=== PATIENT | female | born 1950 | race Caucasian/White ===

== ENCOUNTER → 2016-07-16 | Day surgery (SDC) | payer OTHER ==
[~2016-07-16] VITALS: Ht 170.2 cm; Wt 74.1 kg
[2016-07-16] VITALS (10 sets, daily range): BP systolic 110–139; BP diastolic 60–76; PULSE 74–85; RESP 10–24; O2SAT 92–96
[~2016-07-16] MED LIST: ALPR0.5T PO; ASCO-294 PO; Bupivacaine-MPF 0.5% W/EPI 30 mL Inj INFILTRATE ONE; CALC-761 PO; CLOB50FO8 TP; Clindamycin Inj 900 MG in IV Premix 1 EACH IV SCH; Dexamethasone 4 mg/mL Inj IVPUSH PRN; EPHEDrine Sulfate 50 mg/mL Inj IM ONE; EPHEDrine Sulfate 50 mg/mL Inj IVPUSH PRN; FLUN25SP NS; GLUC100016 PO; HYDR200T PO; HYDROcodone-APAP 5-325 mg Tablet PO PRN; Ketamine 10 mg/mL 20 mL Inj ONE; Ketorolac 15 mg/mL Inj IVPUSH PRN; Ketorolac 15 mg/mL Inj ONE; Lactated Ringer's 1,000 ML IV ONE; Lactated Ringer's 1,000 ML IV SCH; Lactated Ringer's 500 ML IV PRN; MULT-1018 PO; MetoCLOpramide 5 mg/mL 2 mL Inj IVPUSH PRN; Ondansetron 2 mg/mL 2 mL Inj IVPUSH PRN; Phenylephrine 10,000 mCg/mL Inj IVPUSH PRN; ZLP5T PO; fentaNYL-PF 50 mCg/mL 2 mL Inj ONE; hydrOXYzine Inj 25 MG/1 mL SDV IM ONE
[2016-07-16] MEDS: Lactated Ringer's 1,000 ML IV SCH ×2 (08:08→10:33)
--- NOTE | 2016-07-16 08:30 | PCM.HPANE ---
Patient Data Surgeon Admitting Provider: Attending Provider:Luke Benedict MD Primary Care Physician:Yovani Kerr MD Other Provider:Alexandra Alatorre Anesthesia Reason for Visit Left Breast Cancer Ht/WT & BMI Height (Feet): 5 Height (Inches): 7.00 Weight (Kilograms): 74.1 Body Mass Index 25.00 Allergies Coded Allergies: azithromycin (Verified Allergy, Intermediate, GI UPSET NAUSEA, 06/29/16) cephalexin (Verified Allergy, Intermediate, GI UPSET NAUSEA, 06/29/16) codeine (Verified Allergy, Intermediate, UPSET STOMACH NAUSEA, 06/29/16) trazodone (Verified Allergy, Intermediate, HANOVER EFFECT DIDN'T LIKE, ) Past Anesthesia History Anesthesia History: Denies:: Abnormal Airway, Anesthesia Reactions, Difficult Intubation, Fam Anesthesia Reaction Diabetes History Hx Diabetes?: No MRSA MRSA: No Medications Hypertension Medication: No Home Meds Incl Beta Charbel: No Reported Medications Glucosamine Sulfate 2Kcl (Glucosamine)1,000 Mg Tablet1,000 Mg PO DAILY 06/29/16 Alprazolam (Xanax)0.5 Mg Tablet0.5-1 Mg PO DAILY PRN For Anxiety Ref 0 06/29/16 Ascorbate Calcium (Vitamin C)500 Mg Tablet1,000 Mg PO DAILY 06/29/16 Hydroxychloroquine Sulfate (Plaquenil)200 Mg [id number] Mg PO DAILY 06/29/16 Multivitamin (Multi Vitamin Daily)1 Each Tablet1 Each PO DAILY Ref 0 06/29/16 Flunisolide 25 Ml Spray2 Sprays NS PRN 06/29/16 Clobetasol Propionate/Emoll (Clobetasol Emollnt 0.05% Foam)50 Gm Foam1 Dose TP BID 06/29/16 Calcium Citrate/Vitamin D3 (Citracal + D Maximum Caplet)1 Each Tablet2 Each PO BID 06/29/16 Zolpidem (Ambien)5 Mg Tablet5 Mg PO HS PRN For Insomnia Ref 0 06/29/16 History HEENT History: Denies:: Abnormal Airway Cataracts Difficult Intubation Dysphagia Glaucoma Hearing Problem Sinus Problem TMJ Cardiovascular History: Denies:: AICD Abdominal Aortic Aneurism Atrial Fibrillation Cardiac Surgery Chest Pain Coronary Artery Disease Heart Murmur Hypertension Irregular Heartbeat Pacemaker Peripheral Vascular Rheumatic Fever Hx of Respiratory Problem?: No Respiratory History: Denies:: Asthma COPD Emphysema Oxygen Administration Pneumonia Tuberculosis Use of C-PAP Machine Use of Inhalers / NEBS Hx Neurologic Problems?: No Neurological History: Positive for:: Headaches (prior- not for last few years) Denies:: CVA Multiple Sclerosis Parkinson's Disease Seizures TIA Hx of GI Problems?: No Gastrointestinal History: Denies:: Cirrhosis Gall Bladder Disease Gastroesphageal Reflux Gastrointestinal Bleeding Heartburn Hepatitis Hiatal Hernia Liver Disease Rectal Bleeding Hx of Problems?: No Genitourinary History: Denies:: Kidney Stones Urinary Tract Infection Female Hx: Positive for:: Problems with Breasts? (left breast ca current admission problem) Denies:: Currently Skin History: Denies:: History Skin Disorders? Pressure Ulcers Hx Musculoskeletal Problems?: Yes Musculoskeletal History: Positive for:: Systemic Lupus (discoid lupus) Denies:: Back Injury Degenerative Joint Fibromyalgia Joint Replacement Musculoskeletal Trauma Myasthenia Gravis Osteoarthritis (borderline osteoporosis) Hx of Psycho/Social Problems?: No Psycho Social History: Denies:: Anxiety Hx Depression Hx Surgeries?: Yes (mole excised back) Hx Any Other Health Problems?: Yes Other History: Positive for:: Cancer (left breast ca) Denies:: Thyroid Disease History Blood Transfusions: Positive for:: Accept Blood Products? Denies:: Blood Transfusions Hx Diabetes: No Hx Alcohol Use: YesAlcoholic Drinks Per Day: one to two drinks dailyHx Substance Use: NoHave You Smoked inLast 12 mo: No Stop/Bang Treated for Sleep Apnea?: No Do You Have a CPAP Machine?: No S-Snoring: Do You Snore Loudly: No T-Tired: feel tired, fatigued: No O-Obsered: Observed not breath: No P-Blood Pressure: treated: No B- Body Mass Index > 35 kg/m2: No A- Age over 50: Yes N- Neck Large Circumference: No G- Gender Male: No ANTOLIN Total Score: 1 ANTOLIN Risk Assessment: Low Risk, <3 Yes Risk Assessment Category Category 1A: Patient has history of documented sleep apnea, and HAS NOT received any narcotic, sedative or anesthesia administration during this stay. Category 1B: Patient has history of documented sleep apnea, and HAS received any narcotic , sedative or anesthesia administration during this stay Category 2: Patient has SUSPECTED Obstructive Sleep Apnea, and HAS received any narcotic , sedative or anesthesia administration during this stay. Category 3: Patient has SUSPECTED Obstructive Sleep Apnea and HAS NOT received narcotic, sedative or anesthesia administration during this stay. Category 4: Outpatient in Procedural Areas with known sleep apnea or who screen positive for High Risk via the STOP/BANG questionnaire. Exam Exam Vital Signs Vital Signs Date Time Temp Pulse Resp B/P Pulse Ox O2 Delivery O2 Flow Rate FiO2 07/16/16 08:21 36.5 74 16 139/75 96 Room Air General Appearance: Alert, Oriented X3, Cooperative, No Acute Distress HEENT/AIRWAY: MP 2 Lungs: Clear to Auscultation, Normal Air Movement Heart: Exam Unremarkable, Regular Rate/Rhythm, No Murmurs/Rubs/Gallops Meds/Labs/Diagnostics Admission Meds Current Medications Lactated Ringer's (Lr) 1,000 ml @ 120 mls/hr Q8H20M IV Last administered on t 08:08; Start 07/16/16 at 05:00; Stop 07/16/16 at 13:19 Plan Impression Patient chart reviewed, patient interviewed and anesthestic plan with risks, benefits, and alternatives discussed, and informed consent obtained. NPO Status: 07/15 at 1930 ASA Physical Status: ASA2 Mod Systemic Disease Anesthetic Plan: GA Bene/Risks/Altern/Consents: Yes HP Complete Prior to Induction: Yes Randall Hayes MD Jul 16, 2016 08:30
--- NOTE | 2016-07-16 09:51 | DRSVH ---
PROCEDURE: NM SENTINEL NODE INJECTION ONLY, LEFT BREAST RADIOPHARMACEUTICAL: 0.5 mCi Millipore filtered Tc-99m sulfur colloid. INDICATIONS: LEFT BREAST CANCER PROCEDURE: The indications, alternatives, benefits, risks, and complications of the procedure were explained to the patient. Written informed consent was obtained and placed in the chart. The area around the nip ple was prepped and draped in a sterile fashion. Tc-99m sulfur colloid was injected in the outer edg e of the areola in the left breast. No image was obtained. IMPRESSION: Administration of radiotracer into the left breast periareolar region for intra-operativ e sentinel lymph node localization. Dictated by: Kiran Barroso M.D. on 07/16/2016 at 9:49 Approved by: Kiran Barroso M.D. on 07/16/2016 at 9:49
--- NOTE | 2016-07-16 12:07 | PCM.DISURG ---
Surgical Discharge Instruction Date of Service Jul 16, 2016 Dates of Hospitalization Date of Hospital Admission Providers Admitting Physician: Primary Care Physician: Yovani Kerr MD Attending Physician: Luke Benedict MD Discharge Diagnosis Discharge Diagnosis Left breast cancer Diet Discharge Diet: No restrictions Activity Discharge Activity-General: No restrictions Dressing and Incisional Care Dressing Care: Allow Steri Stripes to fall off, Remove outer dressing after 24 hrs Hygiene: May shower after (24 hours) Follow Up Plan Follow Up Plan With Dr. Benedict in surgery clinic in 2 weeks. Call your provider for: Fever (over 101.5), Discharge @ incision, pus discharge Luke Benedict MD Jul 16, 2016 12:07
--- NOTE | 2016-07-16 12:15 | PCM.SURGOP ---
Surgical Operative Report Date of Service: Jul 16, 2016 Pre Operative Diagnosis Left breast cancer, upper inner quadrant Post Operative Diagnosis Same Procedure: Left partial mastectomy, left axillary sentinel lymph node biopsy Surgeon and [facility]: Surgeon: Luke Benedict MD Assistants: Jf Westfall PA-C Indication for Procedure 66-year-old woman who noticed a mass in her left breast upper inner quadrant. Mammogram demonstrated a focal asymmetry. Ultrasound showed a 1.6 cm mass, 5 cm from the nipple. Biopsy demonstrated well-differentiated invasive ductal carcinoma, ER/TN positive, [id number]. Breast MRI confirmed a 1.6 and a meter mass with no other abnormalities. After discussion of risks and benefits , she agreed to proceed with left partial mastectomy and left axillary sentinel lymph node biopsy. Findings: There was a single sentinel lymph node, which had both uptake of blue dye and radiotracer uptake, with an ex vivo count of 61 compared to a background count in the axilla of 4. The sentinel lymph node was minimally concerning by palpation or visual inspection. Procedure Details Preoperatively, the patient underwent radiotracer injection for sentinel node identification. She was then brought to the operating room where she underwent smooth induction of general anesthesia with an LMA. Assessment of the axilla with the radiotracer had a weak signal, so methylene blue was injected into the subdermal tissue around the areolar border on the left, utilizing a total of 2 mL. The breast was massaged for several minutes. She was then prepped and draped in wide sterile fashion. A procedural pause was performed according to the SCOAP checklist, and all found to be in agreement. A transverse incision was made in the upper inner quadrant of the left breast over the palpable mass. Dissection was carried down with electrocautery to the superficial breast parenchyma. Skin flaps were raised superiorly and inferiorly. Circumferential dissection was then carried out through the breast parenchyma using electrocautery until the lesion had completely been dissected free. It was oriented with suture, and a specimen x-ray was obtained. This confirmed that the mammographic lesion had been excised along with the clip. It looked somewhat close to the medial aspect of the tissue. The first specimen was labeled as left breast tissue, upper inner quadrant, and was sent for permanent pathology. A separate medial margin was obtained by grasping breast tissue with Filipe clamps, and excising another shave margin with electrocautery, approximately 8-10 mm in thickness. The tissue was oriented with suture, and sent for permanent pathology. The margins of the cavity were marked with hemoclips circumferentially. The breast parenchyma was reapproximated superior to inferior using interrupted 3-0 Vicryl suture. The left axilla was then assessed again with the gamma probe. Again, there was a signal that was not particularly strong. A curvilinear incision was made at the inferior border of the hairbearing skin. Dissection was carried down with electrocautery until the axillary fascia was incised. Using the gamma probe as a guide, the area of maximum radiotracer was identified. This was fairly inferior and axilla and seemed like it could've been in the axillary tail. Nonetheless, while dissecting down to this area, a lymph node with methylene blue uptake was visualized. This was dissected free from the surrounding tissue using a combination of electrocautery and hemoclips. It was not particularly firm or enlarged by palpation. Ex vivo, it had a discrete radiotracer count of 61, compared to a background count in the left axilla of 4. That was labeled as left axillary sentinel lymph node, and was sent for permanent pathology. Hemostasis was adequate. The left axillary fascia was closed with an interrupted 3-0 Vicryl suture. The skin incisions were closed using running 4-0 Vicryl subcuticular stitches. Steri-Strips and sterile dressings were applied. At the end of the case all needle and sponge counts were correct 2. The patient was awakened from anesthesia without difficulty, and taken to the recovery room in satisfactory condition, having tolerated the procedure well. Complications There were no periprocedural complications identified. Surgical Specimen Removed: Yes Specimen sent to Pathology: Yes Surgical Specimen description: Left breast tissue, upper inner quadrant. Left breast medial margin. Left axillary sentinel lymph node. Anesthetic Plan: GA Grafts, Implants: None Output, Estimated Blood Loss: 30 Blood Administration during cevallos: No Drains: None Catheters: None copies to: Yovani Kerr MD; Kam Mcgraw MD; Timbo Benjamin MD, Joshua D MD Jul 16, 2016 12:14
[2016-07-16] MEDS: fentaNYL-PF 50 mCg/mL 2 mL Inj IVPUSH PRN ×5 (12:19→12:51)
--- NOTE | 2016-07-16 13:49 | PCM.ANEP1 ---
Post Anesthesia Phase 1 PACU Phase 1 Assessment Date of Service: Jul 16, 2016 Vital Signs Vital Signs Date Time Temp Pulse Resp B/P Pulse Ox O2 Delivery O2 Flow Rate FiO2 07/16/16 13:15 75 16 127/63 95 Room Air 07/16/16 13:09 75 10 121/63 93 Room Air 07/16/16 13:00 36.1 75 14 122/61 92 Nasal Cannula 1 07/16/16 12:45 78 15 124/61 93 Nasal Cannula 1 07/16/16 12:30 76 11 118/60 94 Nasal Cannula 2 07/16/16 12:20 80 18 111/60 95 Nasal Cannula 3 07/16/16 12:15 85 22 129/65 95 Nasal Cannula 3 07/16/16 12:11 36.5 84 24 110/61 95 Nasal Cannula 3 07/16/16 08:21 36.5 74 16 139/75 96 Room Air Anesthetic Administered: GA Level of Alertness: Sleepy, easy to arouse ESPINAL's with Equal Strength: Yes Pain: No Nausea or Vomiting: No Oxygen Delivery: Nasal Cannula Lungs: Clear to Auscultation, Normal Air Movement Dermatome Level: Full Sensation Randall Hayes MD Jul 16, 2016 13:49
--- NOTE | 2016-07-16 13:50 | PCM.ANEP2 ---
Post Anesthesia Evaluation ASA/CMS Post Anesthesia VS in Patient's Normal Range?: Yes Resp Stable; Airway Patent?: Yes CV Function & Hydration Stable: Yes Mental Status Recovered?: Yes Pain control Satisfactory?: Yes N/V Control Satisfactory?: Yes Randall Hayes MD Jul 16, 2016 13:50
--- NOTE | 2016-07-19 07:21 | DRSVH ---
SPECIMEN LEFT BREAST: 07/16/2016 CLINICAL: Breast specimen. Correlation is made to exams dated: 07/02/2016 breast MRI - [facility], 06/21/2016 mammogra m, 06/15/2016 mammogram, and 10/10/2014 mammogram - [facility]. A surgical specimen was imaged for the irregular shaped mass located in the left breast at 10 o'cloc k middle depth. IMPRESSION: SPECIMEN The imaged specimen includes the lesion and a biopsy clip. This exam was interpreted at Station ID: [id number]. Juan amaya/:07/16/2016 12:48:03 Additional referring physicians: JOSE ROBERTO MENDOZA SANDEEP BALSA
--- NOTE | 2016-07-20 13:13 | PATH ---
SURGICAL PATHOLOGY Attending Physician:Lisette Tsai CASE STATUS: Signed Out * Amended * PATIENT NAME: FRANCOIS MARX PID: [id number] : 1950 DATE COLLECTED:07/16/2016 21:43 SPECIMEN: 1: Breast Mass, Excision 2: Breast Margin 3: [place] Lymph Node CLINICAL HISTORY: 1). LEFT BREAST TISSUE, UPPER INNER QUADRANT, SHORT STITCH SUPERIOR, LONG STITCH LATERAL, OUT 11:15 FORMALIN 11:18 2). LEFT BREAST MEDIAL MARGIN, SHORT STITCH SUPERIOR, LONG STITCH ANTERIOR OUT 11:21 FORMALIN 11:23 3). LEFT AXILLARY SENTINEL LYMPH NODE OUT 11:48 FORMALIN 11:50 FINAL DIAGNOSIS: 1.LEFT BREAST TISSUE: CAP CANCER CASE SUMMARY INVASIVE CARCINOMA OF THE BREAST: PROCEDURE: LUMPECTOMY LYMPH NODE SAMPLING: SENTINEL SPECIMEN LATERALITY: LEFT TUMOR SITE: UPPER INNER QUADRANT TUMOR SIZE: 1.5 CM HISTOLOGIC TYPE: INFILTRATING DUCTAL CARCINOMA HISTOLOGIC GRADE: [place] HISTOLOGIC SCORE Glandular/Tubular differentiation: Score 3 Nuclear Pleomorphism: Score 2 Mitotic Rate: Score 1 Overall Grade: Grade 2 TUMOR FOCALITY: SINGLE FOCUS DUCTAL CARCINOMA IN SITU: NOT IDENTIFIED LOBULAR CARCINOMA IN SITU: NOT IDENTIFIED MACROSCOPIC AND MICROSCOPIC EXTENT OF TUMOR SKIN: UNINVOLVED NIPPLE: UNINVOLVED SKELETAL MUSCLE: UNINVOLVED MARGINS INVASIVE CARCINOMA: Anterior: GREATER THAN 1.0 CM Posterior: 1.0 CM Superior: 5 MM Inferior: GREATER THAN 1.0 CM Medial: 5 MM Lateral: GREATER THAN 1.0 LYMPH NODES Total number of lymph nodes examined: 1 Number of sentinel lymph nodes examined: 1 Lymph Node Involvement: Number of lymph nodes with macrometastases: 0 Number of lymph nodes with micrometastases: 0 Number of lymph nodes with isolated tumor cells: 0 TREATMENT EFFECT: Response to Presurgical Therapy Breast: NOT IDENTIFIED Lymph nodes: NOT IDENTIFIED LYMPH-VASCULAR INVASION: NOT IDENTIFIED DERMAL LYMPH-VASCULAR INVASION: NOT IDENTIFIED PATHOLOGIC STAGING: AJCC, 7th ed., 2010 PRIMARY TUMOR: pT1c AMENDED DIAGNOSIS REGIONAL LYMPH NODES: Pn0 (sentinel) ADDITIONAL PATHOLOGIC FINDINGS: Specify: FIBROCYSTIC CHANGE. SINGLE FOCUS OF ADENOSIS WITH MICROCALCIFICATIONS ANCILLARY STUDIES: Biomarkers Performed Previously on Case: BIOMARKERS PERFORMED PREVIOUSLY ON Estrogen Receptor (ER) Status: POSITIVE (GREATER THAN 95%, STRONG INTENSITY) Progesterone Receptor (PgR) Status: POSITIVE (95%, STRONG INTENSITY) HER2 (by immunohistochemistry): NEGATIVE FOR OVEREXPRESSION (1+) 2.LEFT BREAST MEDIAL MARGIN: NEGATIVE FOR INFILTRATING CARCINOMA AND DUCTAL CARCINOMA IN SITU. SMALL FOCI OF ADENOSIS. 3.LEFT AXILLARY SENTINEL LYMPH NODE: ONE LYMPH NODE WITH NO EVIDENCE OF MALIGNANCY. ICD10 CODE C50.9 GROSS DESCRIPTION: The specimens are received in formalin, labeled with the patient's name, and sublabeled as the following: (1) left breast tissue, upper inner quadrant; (2) left breast medial margin; (3) left axillary [place] lymph node. (1) The specimen consists of an oriented piece of breast tissue (3.3 cm in AP, 5.6 cm the SI, 5.4 cm ML) with no overlying skin. No localization wire is present. The specimen is serially sectioned into 25 slices with the superior and inferior resection margins and slices #1 and #25 respectively. The breast tissue is densely fibrous and contains a hook-white solid firm irregular mass (1.5 x 1.3 x 1.2 cm) within slices #5-#12. The mass is 0.6 cm from the anterior, 0.7 cm from the posterior, 1.2 cm from the superior, 3.2 cm from the inferior, 0.2 cm from the medial, and 2.5 cm from the lateral resection margins. No other nodules, masses or lesions are identified. Ink code: purple-anterior; yellow-posterior; black-superior; orange-inferior; green-medial; blue-lateral. Section code: (1A) superior resection margin, perpendicularly sectioned; (1B) size #2, entirely submitted; (1C) slice #3, bisected ML, lateral half submitted; (1D) slice #4, tissue adjacent to mass, bisected ML, lateral half submitted; (1E-1F) slice #5, bisected and submitted ML , entirely submitted; (1G-1H) slice #6, bisected and submitted ML, entirely submitted; (1I-1J) slice #7, bisected and submitted ML, entirely submitted; (1K) slice #8, bisected ML, lateral half submitted; (1L) slice #9, bisected ML, lateral half submitted; (1M) slice #10, bisected ML, lateral half submitted; (1N) slice #11, bisected ML, lateral half submitted; (1O) slice #12, trisected ML, middle third submitted; (1P-1Q) slice #13, tissue adjacent to mass, [employer] submitted ML; (1R) slice #14, [employer]; (1S) inferior resection margin, perpendicularly sectioned, and [employer]. (2) The specimen consists of an oriented piece of breast tissue (2.3 cm in AP, 3.6 cm SI, 1.1 cm ML) with no overlying skin. The specimen is oriented with 2 black sutures (short-superior, long-anterior). No localization wire is present. The breast tissue is fibrofatty with no nodules, masses or lesions identified. Ink code: black-anterior; yellow-posterior; purple-superior; orange-inferior; green-medial; blue-lateral. Section code: (2A-2I) breast tissue, serially sectioned and submitted SI into 17 slices with the superior and inferior resection margins perpendicularly sectioned. Specimen is entirely submitted. (3) The specimen consists of a blue stained lymph node (1.4 x 1.2 x 0.7 cm) with attached adipose tissue (2.2 x 1.1 x 0.5 cm). Section code: (3A) one lymph node, serially sectioned, entirely submitted. Note: Approximate total fixation time in formalin for all specimens-51 hours and 30 minutes calculated using a collection date of July 16, 2016 with times in the fixative of 7970-9227. 07/17/16 JM MICRO DESCRIPTION: See diagnosis. ICD-9 CODES: CPT CODES: 1: 50871 2: 47621 3: 86462 PROCEDURE/ADDENDA: Addendum SPI Addendum Diagnosis TEST: Oncotype DX Breast Recurrence Score Recurrence Score Result: 4 ER Score:12.4 Positive NM Score: 9.1 Positive HER2 Score: 9.2 Negative Addendum Comment Please see [employer] Report [id number] for complete details. Testing and Interpretation done by [employer], [place], [place]. Testing requested by Dr. Ann, [facility]. Electronically Signed Out Jac Powers MD AMENDMENT(S): Amended: 07/26/2016 by Claudia Perez Reason:Amended Diagnosis Correct pathologic stage Previous Signout Date: 07/20/2016 Electronically Signed Out Jac Powers MD [facility] [address], [place] [address] Technical component performed at [facility], [address], [place], [address]
== END | disposition home or self-care (01) ==
LOC: SAS 07:29
PROVIDERS: ATTEND Student in an Organized Health Care Education/Training Program
DX: C50.212 Malignant neoplasm of upper-inner quadrant of left female breast (principal); R51 Headache; Z17.0 Estrogen receptor positive status [ER+]; M32.9 Systemic lupus erythematosus, unspecified; Z79.899 Other long term (current) drug therapy; Z87.891 Personal history of nicotine dependence
CPT/HCPCS: 19301; 38525; 38792; 76098; A9541; J1885; J2250; J2405; J2765; J3010; J3410; J7120